=== PATIENT | female | born 1980 | race Caucasian/White ===

== ENCOUNTER 2020-02-08 13:07 | Emergency (ER) | payer SELFPAY ==
[~2020-02-08] VITALS: Ht 152.4 cm; Wt 58.2 kg
[2020-02-08] MEDS ORDERED: IBUP-1114 PO (13:14)
[2020-02-08 13:54] LABS: HEMATOCRIT 43.3 % (36.0-47.0); HEMOGLOBIN 14.6 g/dl (12.0-15.5); MEAN CORPUSCULAR HEMOGLOBIN 32.5 pg (27.0-33.0); MEAN CORPUSCULAR HGB CONC 33.7 g/dl (32.0-36.5); MEAN CORPUSCULAR VOLUME 96.4 fl (80.0-96.0); PLATELET COUNT, AUTOMATED 236 10^3/uL (150-450); RED BLOOD COUNT 4.49 10^6/uL (4.00-5.40); WHITE BLOOD COUNT 15.3 10^3/uL (4.0-10.0)
[2020-02-08] MEDS ORDERED: NS 1,000 ML IV ONE (14:15)
[2020-02-08] MEDS ORDERED: cefTRIAXone SOD 1 GM in D5W MINI-BAG PLUS 50 ML IV ONE (14:15)
[2020-02-08] MEDS ORDERED: ONDANSETRON 4MG/2ML VIAL (J2405) IV ONE (14:15)
--- NOTE | 2020-02-08 14:37 | REP ---
Supine abdomen single AP view: There are no comparisons. The bowel gas pattern is normal. There are no calcifications. The skeletal structures and soft tissues are otherwise unremarkable. Impression: Normal bowel gas pattern. There are no calcifications are identified. Electronically Signed by Mac Yuen MD 02/08/2020 02:29 P
[2020-02-08] MEDS ORDERED: IBUP-1022 PO (14:59)
[2020-02-08] MEDS ORDERED: CIPR-249 PO (14:59)
[2020-02-08] MEDS ORDERED: KETOROLAC 30 MG/ML VIAL (J1885) IV ONE (15:00)
--- NOTE | 2020-02-08 15:17 | REP ---
REASON FOR EXAM: Left sided flank pain. COMPARISON: None. FINDINGS: Multiple ultrasonographic images of the right kidney show the right kidney to measure 11.6 x 4.4 x 3.5 cm. The renal cortical echotexture is unremarkable. There are no masses. There is good corticomedullary differentiation. There is no hydronephrosis. There are no perinephric fluid collections. Multiple ultrasonographic images of the left kidney show the left kidney to measure 11.7 x 4.7 x 5.5 cm. The renal cortical echotexture is unremarkable. There are no masses. There is good corticomedullary differentiation. There is no hydronephrosis. There are no perinephric fluid collections. Imaging of the urinary bladder was obtained for the purpose of assessing for uro-jet phenomenon at the UJ junction which was seen bilaterally. IMPRESSION: Unremarkable renal ultrasonography. Electronically Signed by Maxi Trevino DO 02/08/2020 03:36 P
[2020-02-08 16:21] VITALS: BP 103/53
== END 2020-02-08 16:27 | disposition home or self-care (01) ==
LOC: M ED 13:07
DX: N39.0 Urinary tract infection, site not specified (principal); N10 Acute pyelonephritis; R11.10 Vomiting, unspecified; F17.218 Nicotine dependence, cigarettes, with other nicotine-induced disorders
CPT/HCPCS: 74018; 76775; 80047; 81001; 84702; 85027; 87088; 87186; 96361; 96365; 96375; 99284; J0696; J1885; J2405

== ENCOUNTER → 2020-12-13 | Outpatient (REF) | payer BC ==
[~2020-12-13] MED LIST: CIPR-249 PO; IBUP-1022 PO; IBUP-1114 PO
== END ==
LOC: M LAB REF 12:43
PROVIDERS: ATTEND Obstetrics & Gynecology
DX: N75.1 Abscess of Bartholin's gland (principal)

== ENCOUNTER → 2022-01-01 | Outpatient (REF) | payer BC | LOC: M LAB REF 16:31 | PROVIDERS: ATTEND Obstetrics & Gynecology | DX: R30.0 Dysuria (principal); R31.9 Hematuria, unspecified ==

== ENCOUNTER 2022-04-08 20:22 | Inpatient (IN) | payer BC ==
[~2022-04-08] VITALS: Ht 152.4 cm; Wt 59.1 kg
[2022-04-08] MEDS ORDERED: AZUR1TAB PO (20:48)
[2022-04-08 21:14] LABS: HEMATOCRIT 42.8 % (36.0-47.0); HEMOGLOBIN 14.7 g/dl (12.0-15.5); MEAN CORPUSCULAR HEMOGLOBIN 33.7 pg (27.0-33.0); MEAN CORPUSCULAR HGB CONC 34.3 g/dl (32.0-36.5); MEAN CORPUSCULAR VOLUME 98.2 fl (80.0-96.0); PLATELET COUNT, AUTOMATED 349 10^3/uL (150-450); RED BLOOD COUNT 4.36 10^6/uL (4.00-5.40); WHITE BLOOD COUNT 14.6 10^3/uL (4.0-10.0)
[2022-04-08 21:42] LABS: AMPHETAMINES LEVEL URINE NEGATIVE (NEGATIVE); BARBITURATES URINE NEGATIVE (NEGATIVE); BENZODIAZEPINES URINE NEGATIVE (NEGATIVE); CANNABINOIDS URINE POSITIVE (NEGATIVE); COCAINE METABOLITE URINE NEGATIVE (NEGATIVE); METHADONE URINE NEGATIVE (NEGATIVE); OPIATES URINE NEGATIVE (NEGATIVE); PHENCYCLIDINE URINE NEGATIVE (NEGATIVE)
[2022-04-08 21:55] LABS: ACETAMINOPHEN LEVEL < 2.0 UG/ML (10.0-30.0); ALBUMIN 4.5 GM/DL (3.2-5.2); ALT/SGPT 18 U/L (12-78); BILIRUBIN,DIRECT 0.1 MG/DL (0.0-0.2); BILIRUBIN,TOTAL 0.5 MG/DL (0.2-1.0); BLOOD UREA NITROGEN 12 MG/DL (7-18); CALCIUM LEVEL 9.7 MG/DL (8.5-10.1); CARBON DIOXIDE LEVEL 26 MEQ/L (21-32); CHLORIDE LEVEL 106 MEQ/L (98-107); CREATININE FOR GFR 0.94 MG/DL (0.55-1.30); ETHYL ALCOHOL (ETHANOL) 0.003 % (0.000-0.010); GLOMERULAR FILTRATION RATE > 60.0 (>60); GLUCOSE, FASTING 98 MG/DL (70-100); POTASSIUM SERUM 3.5 MEQ/L (3.5-5.1); SALICYLATE LEVEL 6.9 MG/DL (5.0-30.0); SODIUM LEVEL 138 MEQ/L (136-145); TOTAL PROTEIN 7.8 GM/DL (6.4-8.2)
[2022-04-08 22:01] LABS: HCG, SERUM QUALITATIVE NEGATIVE (NEGATIVE)
[2022-04-08 23:01] LABS: RSV AMPLIFICATION NEGATIVE (NEGATIVE)
[2022-04-08 23:52] LABS: ACETAMINOPHEN LEVEL < 2.0 UG/ML (10.0-30.0); SALICYLATE LEVEL 6.5 MG/DL (5.0-30.0)
[2022-04-09] MEDS ORDERED: NICOTINE 14 MG/24 HR TRANSDERMAL TD ONE (09:10)
[2022-04-09] MEDS ORDERED: HOME MED LIST COMPLETE! XX SCH (15:05)
[2022-04-09] MEDS ORDERED: NICOTINE 21MG/24HR 1 EA TRANSDERMAL TD ONE (19:25)
[2022-04-09] MEDS ORDERED: ACETAMINOPHEN TAB 650MG DOSE (2X325MG) PO PRN (22:10)
[2022-04-09] MEDS ORDERED: traZODone 50 MG TAB PO PRN (22:10)
[2022-04-09] MEDS ORDERED: MOM 30ML SUSPENSION UDC PO PRN (22:10)
[2022-04-09] MEDS ORDERED: MAALOX 30 ML SUSP *UDC PO PRN (22:10)
[2022-04-09 23:05] VITALS: BP 152/86
[2022-04-10 00:37] VITALS: BP 130/82
[2022-04-10 06:43] VITALS: BP 117/59
== END 2022-04-10 13:15 | disposition home or self-care (01) | DRG 755 ==
LOC: M ED 20:22 → M ED INP 04-09 22:09 → M PSY 04-09 23:06
PROVIDERS: ADMIT Psychiatry & Neurology Psychiatry; ATTEND Psychiatry & Neurology Psychiatry
DX: F43.25 Adjustment disorder with mixed disturbance of emotions and conduct (principal)